=== PATIENT | female | born 1985 ===

== ENCOUNTER 2018-09-25 11:15 | Inpatient (IN) | payer OTHER ==
[~2018-09-25] VITALS: Ht 170.2 cm; Wt 65.8 kg
[~2018-09-25 11:15] MED LIST: DOCUSATE SODIU100 MG PO; IBUPROFEN400 MG PO; PRENATAL ONE T1 EACH PO; PREPLUS CA-FE1 EACH PO
== END 2018-10-19 13:15 | disposition home or self-care (01) | DRG 807 ==
LOC: OB/GYN 10-15 15:15 → LDR 10-17 04:12 → OB/GYN 10-17 17:37
PROVIDERS: ADMIT Obstetrics & Gynecology
PROC: 10E0XZZ Delivery of Products of Conception, External Approach (ICD-10-PCS; principal; 2018-10-17)
PROC: 0KQM0ZZ Repair Perineum Muscle, Open Approach (ICD-10-PCS; 2018-10-17)
PROC: 4A0HXFZ Measurement of Products of Conception, Cardiac Rhythm, External Approach (ICD-10-PCS; 2018-10-17)
DX: O70.1 Second degree perineal laceration during delivery (principal); Z37.0 Single live birth; Z3A.40 40 weeks gestation of pregnancy